=== PATIENT | male | born 1985 | race Caucasian/White ===

== ENCOUNTER 2018-03-04 03:31 | Emergency (ER) | payer OTHER ==
--- NOTE | 2018-03-04 03:42 | ED Physician Documentation ---
PD HPI NVD - Stated complaint Stated Complaint: DIARRHEA,FEVER - Chief complaint Chief Complaint: Abd Pain - History obtained from History obtained from: Patient - History of Present Illness Timing - onset: How many days ago (3) Timing - duration: Days (3) Timing - details: Gradual onset Pain level now: 3 Associated symptoms: Fever (subjective (felt like he had fever yesterday, but did not take temperature)), Abdominal pain (epigastric and LUQ). No: Chest pain Improved by: Other (no ameliorating factors) Worsened by: Other (no exacerbating factors) Similar symptoms before: Has not had sx before Recently seen: Not recently seen - Additonal information Additional information: c/o 3 days of diarrhea. mild nausea, no vomiting. cramping LUQ and epigastric abdominal pain Review of Systems Constitutional: reports: Fever (subjective), Chills, Sweats Cardiac: reports: Reviewed and negative Respiratory: reports: Reviewed and negative GI: reports: Abdominal Pain, Nausea (mild), Diarrhea. denies: Vomiting : denies: Dysuria, Frequency PD PAST MEDICAL HISTORY - Past Medical History Past Medical History: Yes Musculoskeletal: Chronic back pain - Past Surgical History Past Surgical History: Yes Ortho: Shoulder arthroplasty - Present Medications Home Medications: Ambulatory Orders Medication Instructions Recorded Confirmed Diphenoxylate/Atropine [Lomotil] 1 each PO QID PRN #20 tablet 03/04/18 - Allergies Allergies/Adverse Reactions: Allergies Allergy/AdvReac Type Severity Reaction Status Date / Time No Known Drug Allergies Allergy Verified 03/04/18 03:40 - Social History Does the pt smoke?: No Smoking Status: Never smoker Does the pt drink ETOH?: Yes Does the pt have substance abuse?: No - Immunizations Immunizations are current?: Yes - POLST Patient has POLST: No PD ED PE NORMAL - Vitals Vital signs reviewed: Yes - General General: Alert and oriented X 3, No acute distress, Well developed/nourished - HEENT HEENT: Other (tacky/pasty mucous membranes) - Neck Neck: Supple, no meningeal sign - Cardiac Cardiac: RRR, No murmur - Respiratory Respiratory: No respiratory distress, Clear bilaterally - Abdomen Abdomen: Soft, Non distended, Other (LUQ and epigastric TTP without rebound or guarding) - Back Back: No CVA TTP Results - Vitals Vitals: Vital Signs - 24 hr 03/04/18 03/04/18 03:36 05:56 Temperature 36.5 C 36.4 C L Heart Rate 74 74 Respiratory 15 18 Rate Blood Pressure 134/71 H 126/73 O2 Saturation 99 99 Oxygen O2 Source Room air - Labs Labs: Microbiology 03/04/18 05:30 Campylobacter Antigen Assay - Final Stool Laboratory Tests 03/04/18 03/04/18 04:15 04:15 WBC 4.8 RBC 5.06 Hgb 14.6 Hct 43.2 MCV 85.4 MCH 28.8 MCHC 33.7 RDW 13.1 Plt Count 211 MPV 7.1 L Neut # (Auto) 3.6 Lymph # (Auto) 0.5 L Fergus # (Auto) 0.5 Eos # (Auto) 0.2 Baso # (Auto) 0.0 Absolute Nucleated RBC 0.01 Nucleated RBC % 0.1 Sodium 140 Potassium 3.6 Chloride 105 Carbon Dioxide 26 Anion Gap 9.0 BUN 12 Creatinine 1.0 Estimated GFR (MDRD) 88 L Glucose 99 Calcium 9.0 Total Bilirubin 0.6 AST 23 ALT 21 Alkaline Phosphatase 42 Total Protein 7.4 Albumin 4.1 Globulin 3.3 Albumin/Globulin Ratio 1.2 Lipase 30 - Rads (name of study) CT A/P Radiology: Prelim report reviewed, See rad report PD MEDICAL DECISION MAKING - ED course Complexity details: reviewed results, re-evaluated patient, considered differential, d/w patient - Sepsis Event Vital Signs: Vital Signs - 24 hr 03/04/18 03/04/18 03:36 05:56 Temperature 36.5 C 36.4 C L Heart Rate 74 74 Respiratory 15 18 Rate Blood Pressure 134/71 H 126/73 O2 Saturation 99 99 Oxygen O2 Source Room air Departure - Departure Disposition: 01 Home, Self Care Clinical Impression: Diarrhea Condition: Good Instructions: ED Diarrhea Viral Follow-Up: [facility] [Provider Group] [facility] [Provider Group] Prescriptions: Diphenoxylate/Atropine [Lomotil] 1 each PO QID PRN #20 tablet PRN Reason: Diarrhea Discharge Date/Time: 03/04/18 05:56
[2018-03-04] MEDS: DIPHENOX/ATROPINE 2.5/0.025 MG TABLET PO STA (04:18)
[2018-03-04] MEDS: SODIUM CHLORIDE 0.9% 1,000 ML IV STA (04:21)
[2018-03-04] MEDS ORDERED: IOPAMIDOL-300 100 ML VIAL ONE (04:28)
[2018-03-04 04:30] LABS: BASOPHILS % (AUTO) 0.3 %; EOSINOPHILS # (AUTO) 0.2 10^3/uL (0.0-0.7); EOSINOPHILS % (AUTO) 5.1 %; HGB - HEMOGLOBIN 14.6 g/dL (14.0-18.0); LYMPHOCYTES # (AUTO) 0.5 10^3/uL (1.5-3.5); LYMPHOCYTES % (AUTO) 10.8 %; MEAN CORPUSCULAR HEMOGLOBIN 28.8 pg (27.0-31.0); MEAN CORPUSCULAR HGB CONC 33.7 g/dL (32.0-36.0); MEAN CORPUSCULAR VOLUME 85.4 fL (80.0-94.0); MEAN PLATELET VOLUME 7.1 fL (7.4-11.4); MONOCYTES # (AUTO) 0.5 10^3/uL (0.0-1.0); MONOCYTES % (AUTO) 10.1 %; NEUTROPHILS # (AUTO) 3.6 10^3/uL (1.5-6.6); NEUTROPHILS % (AUTO) 73.7 %; PLT - PLATELET COUNT 211 10^3/uL (130-450); RED BLOOD COUNT 5.06 10^6/uL (4.70-6.10); RED CELL DISTRIBUTION WIDTH 13.1 % (12.0-15.0); WHITE BLOOD COUNT 4.8 x10^3/uL (4.8-10.8)
[2018-03-04 04:40] LABS: ALBUMIN 4.1 g/dL (3.2-5.5); ALBUMIN/GLOBULIN RATIO 1.2 (1.0-2.2); BILIRUBIN,TOTAL 0.6 mg/dL (0.2-1.0); TOTAL PROTEIN 7.4 g/dL (6.7-8.2)
[2018-03-04] MEDS: IOPAMIDOL-300 100 ML VIAL IVP ONE (04:41)
--- NOTE | 2018-03-04 05:09 | CT Report ---
Procedure Date: 03/04/2018 Accession Number: [id number] / [id number] Procedure: CT - Abdomen/Pelvis W/ CPT Code: FULL RESULT: EXAM: CT ABDOMEN AND PELVIS EXAM DATE: 03/04/2018 04:43 AM. CLINICAL HISTORY: Abdominal pain. COMPARISONS: None. TECHNIQUE: Routine helical CT imaging was performed through the abdomen and pelvis. IV contrast: ISOVUE 300 100mL. Enteric contrast: No. Reconstructions: Coronal and sagittal. In accordance with CT protocol optimization, one or more of the following dose reduction techniques were utilized for this exam: automated exposure control, adjustment of mA and/or KV based on patient size, or use of iterative reconstructive technique. FINDINGS: Lung Bases: Unremarkable. Liver: No focal abnormality seen. Gallbladder/Bile Ducts: Unremarkable. Spleen: Normal. Pancreas: Normal. Adrenal Glands: Normal. Kidneys: Normal. No masses or hydronephrosis. Peritoneal Cavity/Bowel: No bowel obstruction seen. No diverticulitis. Colon is mostly collapsed and appears mildly thickened. Numerous nonspecific normal sized mesenteric lymph nodes. No free air or free fluid. Appendix appears normal. Pelvic Organs: Normal. The bladder and visualized pelvic organs are within normal limits. Vasculature: No aneurysms or other significant abnormality. Bones: Bilateral L5 pars defects with mild grade 1 spondylolisthesis at L5-S1. Other: None. IMPRESSION: 1. Colon is mostly collapsed and appears mildly thickened. This may simply represent nondistention. Low-grade colitis also possible. 2. Appendix appears normal. 3. Numerous normal sized mesenteric lymph nodes. These are nonspecific. RADIA
[2018-03-04 05:57] VITALS: BP 126/73
== END 2018-03-04 05:56 | disposition home or self-care (01) ==
LOC: ED 03:31
DX: R19.7 Diarrhea, unspecified (principal); R10.13 Epigastric pain
CPT/HCPCS: 36415; 74177; 80053; 83690; 85025; 87045; 87046; 87493; 96360; 99283; A9270; Q9967

== ENCOUNTER 2018-04-13 22:34 | Emergency (ER) | payer OTHER ==
[2018-04-13] MEDS ORDERED: EPINEPHrine 1 MG/ML AMP IM STA (22:40)
[2018-04-13] MEDS ORDERED: predniSONE 20 MG TABLET PO STA (22:40)
--- NOTE | 2018-04-13 22:44 | ED Physician Documentation ---
PD HPI SKIN - Stated complaint Stated Complaint: BEE STING - Chief complaint Chief Complaint: Allergic Rx - History obtained from History obtained from: Patient - History of Present Illness Timing - onset: Today (He was stung on the right wrist by a bee about 6 hours ago and has impressive swelling and itching of the arm but no other symptoms, specifically no throat swelling or shortness of breath.) Review of Systems Nose: denies: Rhinorrhea / runny nose, Congestion Respiratory: denies: Dyspnea, Cough GI: denies: Vomiting, Diarrhea PD PAST MEDICAL HISTORY - Past Medical History Musculoskeletal: Chronic back pain - Past Surgical History Past Surgical History: Yes Ortho: Shoulder arthroplasty - Present Medications Home Medications: Ambulatory Orders Medication Instructions Recorded Confirmed Diphenoxylate/Atropine [Lomotil] 1 each PO QID PRN #20 tablet 03/04/18 Cetirizine [ZyrTEC] 10 mg PO DAILY #7 tablet 04/13/18 predniSONE [Deltasone] 60 mg PO DAILY 5 Days tablet 04/13/18 - Allergies Allergies/Adverse Reactions: Allergies Allergy/AdvReac Type Severity Reaction Status Date / Time No Known Drug Allergies Allergy Verified 03/04/18 03:40 - Social History Does the pt smoke?: No Smoking Status: Never smoker Does the pt drink ETOH?: Yes Does the pt have substance abuse?: No - Immunizations Immunizations are current?: Yes - POLST Patient has POLST: No PD ED PE NORMAL - Vitals Vital signs reviewed: Yes - General General: Alert and oriented X 3, No acute distress, Well developed/nourished - Extremities Extremities: Other (He has edema from the wrist to the elbow of the right forearm with warmth and swelling and redness good range of motion.) - Neuro Neuro: Alert and oriented X 3, Normal speech Results - Vitals Vitals: Vital Signs - 24 hr 04/13/18 22:36 Temperature 36.4 C L Heart Rate 70 Respiratory 18 Rate Blood Pressure 139/88 H O2 Saturation 100 Oxygen O2 Source Room air PD MEDICAL DECISION MAKING - Sepsis Event Vital Signs: Vital Signs - 24 hr 04/13/18 22:36 Temperature 36.4 C L Heart Rate 70 Respiratory 18 Rate Blood Pressure 139/88 H O2 Saturation 100 Oxygen O2 Source Room air Departure - Departure Disposition: 01 Home, Self Care Clinical Impression: Local reaction to bee sting Qualifiers: Encounter type: initial encounter Injury intent: undetermined intent Qualified Code(s): T63.444A - Toxic effect of venom of bees, undetermined, initial encounter Condition: Good Record reviewed to determine appropriate education?: Yes Instructions: ED Bite Sting Insect Local Allergic React Prescriptions: Cetirizine [ZyrTEC] 10 mg PO DAILY #7 tablet predniSONE [Deltasone] 60 mg PO DAILY 5 Days tablet Comments: Keep it elevated, he can apply cold compresses to help with the itching and you can continue to use Benadryl with the other prescription medications. Your blood pressure was elevated today on check into the emergency department. This does not mean that you have hypertension, it is a common phenomenon to come to the emergency department and have elevated blood pressure. I recommend that you see your primary care physician within the week to have it rechecked when you are feeling better.
[2018-04-13] MEDS ORDERED: CETIRIZINE 10 MG TABLET PO STA (22:46)
[2018-04-13 23:05] VITALS: BP 130/80
== END 2018-04-13 23:02 | disposition home or self-care (01) ==
LOC: ED 22:34
DX: T63.444A Toxic effect of venom of bees, undetermined, initial encounter (principal); R03.0 Elevated blood-pressure reading, without diagnosis of hypertension
CPT/HCPCS: 96372; 99283; J7512

== ENCOUNTER 2019-06-05 06:49 | Emergency (ER) | payer OTHER ==
[2019-06-05] MEDS ORDERED: CHERRY SYRUP 10 ML UDC PO ONE (07:31)
[2019-06-05] MEDS ORDERED: KETOROLAC 60 MG/2 ML VIAL IM STA (07:31)
[2019-06-05] MEDS ORDERED: DEXAMETHASONE 10 MG/ML VIAL PO STA (07:31)
[2019-06-05] MEDS ORDERED: diazePAM INJ 5 MG/ML SYRINGE IM STA (07:32)
--- NOTE | 2019-06-05 08:43 | ED Physician Documentation ---
PD HPI BACK PAIN - Stated complaint Stated Complaint: BACK PX - Chief complaint Chief Complaint: Back Pain - History obtained from History obtained from: Patient, Family () - History of Present Illness Timing - onset: Yesterday Timing - details: Still present Location: Lower, Right Quality: Pain Worsened by: Movement Similar symptoms before: Diagnosis (Spondylolisthesis and lumbar disc rupture.) - Treatment prior to arrival Treatment prior to arrival: Ibuprofen without relief. - Additional information Additional information: The patient is a pleasant 34-year-old male who presents with lower back pain more on the right than the left. His pain started yesterday after moving she. He denies fever, urinary incontinence, numbness or weakness. He has a history of similar symptoms multiple times in the past. He has been diagnosed with spondylolisthesis and lumbar disc rupture. He has been seen at [facility] orthopedics where he underwent epidural injection, which he states did not work. Review of Systems Constitutional: denies: Fever Nose: denies: Congestion Cardiac: denies: Chest pain / pressure Respiratory: denies: Dyspnea, Cough GI: denies: Abdominal Pain, Nausea, Vomiting : denies: Dysuria, Incontinent Skin: denies: Rash Musculoskeletal: reports: Back pain. denies: Extremity pain Neurologic: denies: Focal weakness, Numbness PD PAST MEDICAL HISTORY - Past Medical History Past Medical History: Yes Cardiovascular: None Respiratory: None Neuro: None Endocrine/Autoimmune: None GI: None : None HEENT: None Psych: None Musculoskeletal: Chronic back pain Derm: None - Past Surgical History Past Surgical History: Yes Ortho: Shoulder arthroplasty - Present Medications Home Medications: Ambulatory Orders Medication Instructions Recorded Confirmed Cyclobenzaprine [Flexeril] 10 mg PO TID PRN #20 tablet 06/05/19 Hydrocodone/Acetaminophen 1 - 2 each PO Q6H PRN #14 tablet 06/05/19 [Hydrocodon-Acetaminophen 5-325] - Allergies Allergies/Adverse Reactions: Allergies Allergy/AdvReac Type Severity Reaction Status Date / Time No Known Drug Allergies Allergy Verified 06/05/19 06:59 - Social History Does the pt smoke?: No Smoking Status: Never smoker Does the pt drink ETOH?: Yes Does the pt have substance abuse?: No - Immunizations Immunizations are current?: Yes - POLST Patient has POLST: No PD ED PE NORMAL - Vitals Vital signs reviewed: Yes (normal) - General General: Alert and oriented X 3, Well developed/nourished, Other (Lying prone on the gurney.) - HEENT HEENT: Atraumatic - Neck Neck: No bony TTP - Cardiac Cardiac: RRR, No murmur - Respiratory Respiratory: No respiratory distress, Clear bilaterally - Abdomen Abdomen: Soft, Non tender - Back Back: No CVA TTP, No spinal TTP, Other (There is tenderness to palpation in the lower paralumbar region bilaterally, more on the right than the left.) - Derm Derm: No rash - Extremities Extremities: No edema, No calf tenderness / cord, Other (Straight leg raise test is negative bilaterally.) - Neuro Neuro: Alert and oriented X 3, No motor deficit, No sensory deficit, Other (Deep tendon reflexes are 2+ and equal bilaterally at the patellar and Achilles tendons.) Results - Vitals Vitals: Oxygen O2 Source Room air PD MEDICAL DECISION MAKING - ED course Complexity details: reviewed old records, re-evaluated patient, considered differential, d/w patient, d/w family ED course: The patient's presentation is significant for acute exacerbation of recurrent lower back pain. His presentation does not suggest epidural abscess, cauda equina syndrome, or spinal stenosis. Treatment in the emergency department included administration of ketorolac 60 mg IM, Valium 5 mg IM, and dexamethasone 10 mg orally. His symptoms improved slightly with the above treatment. He demonstrates less discomfort with movement. He is being discharged with prescriptions for Flexeril and for Vicodin, 14 tablets. I discussed with him and his symptomatic treatment, outpatient follow-up, as well as potentially worrisome signs or symptoms that should prompt reevaluation in the emergency department. Departure - Departure Disposition: 01 Home, Self Care Clinical Impression: Back pain Qualifiers: Back pain location: low back pain Chronicity: acute Back pain laterality: left Sciatica presence: without sciatica Qualified Code(s): M54.5 - Low back pain Condition: Stable Instructions: ED Low Back Pain Injury Follow-Up: Leeann Knott MD [Provider Admit Priv/Credential] - Prescriptions: Cyclobenzaprine [Flexeril] 10 mg PO TID PRN #20 tablet PRN Reason: Spasms Hydrocodone/Acetaminophen [Hydrocodon-Acetaminophen 5-325] 1 - 2 each PO Q6H PRN #14 tablet PRN Reason: pain Comments: Apply ice pack to your lower back intermittently for the next 3 or 4 days. You can use ibuprofen, up to 800 mg 3 times daily for its anti-inflammatory effect. You can use as Vicodin prescribed if needed for pain. You can use Flexeril as prescribed if needed for muscle spasms. Let pain be your guide to activity level. Follow up with your primary physician within 1-2 weeks. Call to schedule an appointment. Return to the emergency department if you develop increasing pain, numbness or weakness, urinary incontinence, or otherwise worsening symptoms. Discharge Date/Time: 06/05/19 08:50
[2019-06-05 08:50] VITALS: BP 130/92
== END 2019-06-05 08:50 | disposition home or self-care (01) ==
LOC: ED 06:49
DX: M54.5 Low back pain (principal)
CPT/HCPCS: 96372; 99283; 99284; A9270

== ENCOUNTER 2020-03-27 08:36 | Emergency (ER) | payer MEDICAID, OTHER ==
[2020-03-27] MEDS ORDERED: KETOROLAC 60 MG/2 ML VIAL IM STA (09:00)
[2020-03-27] MEDS ORDERED: HYDROmorphone 1 MG/ML CARPUJECT IM STA (09:00)
[2020-03-27] MEDS ORDERED: CYCLOBENZAPRINE 10 MG TABLET PO STA (09:01)
--- NOTE | 2020-03-27 09:08 | ED Physician Documentation ---
History of Present Illness - Stated complaint Stated Complaint: BACK PX - Chief complaint Chief Complaint: Back Pain - History obtained from History obtained from: Patient - Additonal information Additional information: Patient comes emergency department complaining of low back pain after stepping over an electrical line yesterday. 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 He has been followed by [facility] orthopedics and states his last MRI was about 3 years ago. He states they had tried injections, which did not really seem to help, and that he was told by his orthopedist that surgery was likely the next option. However, given the patient's young age and otherwise physical health, the orthopedist recommended that the patient wait to have surgery until later in life. Patient states that he has not lost any control of his bowel or bladder since yesterday. He denies any numbness or tingling in his lower extremities. He states that he is having pain shooting down both legs, but overall, symptoms are worse on the right. Patient is right side dominant. Patient does note that he has some sense of weakness, though he has been able to stand without difficulty. He states that as long as he remains erect, he can walk okay, but has to take small steps because it hurts to engage his low back musculature. No other complaints at this time. Review of Systems Ten Systems: 10 systems reviewed and negative Constitutional: reports: Reviewed and negative Eyes: reports: Reviewed and negative Ears: reports: Reviewed and negative Nose: reports: Reviewed and negative Throat: reports: Reviewed and negative Cardiac: reports: Reviewed and negative Respiratory: reports: Reviewed and negative GI: reports: Reviewed and negative : reports: Reviewed and negative Skin: reports: Reviewed and negative Musculoskeletal: reports: Back pain Neurologic: reports: Reviewed and negative Psychiatric: reports: Reviewed and negative Endocrine: reports: Reviewed and negative Immunocompromised: reports: Reviewed and negative PD PAST MEDICAL HISTORY - Past Medical History Past Medical History: Yes Cardiovascular: None Respiratory: Asthma Neuro: None Endocrine/Autoimmune: None GI: None : None HEENT: None Psych: None Musculoskeletal: Chronic back pain Derm: None - Past Surgical History Past Surgical History: Yes Ortho: Shoulder arthroplasty - Present Medications Home Medications: Ambulatory Orders Medication Instructions Recorded Confirmed Cyclobenzaprine [Flexeril] 10 mg PO TID PRN #20 tablet 06/05/19 03/27/20 Cyclobenzaprine [Flexeril] 10 mg PO TID PRN #20 tablet 03/27/20 Hydrocodone/Acetaminophen 1 - 2 each PO Q6H PRN #14 tablet 03/27/20 [Hydrocodon-Acetaminophen 5-325] Ibuprofen 400 mg PO Q6HR PRN 03/27/20 03/27/20 - Allergies Allergies/Adverse Reactions: Allergies Allergy/AdvReac Type Severity Reaction Status Date / Time No Known Drug Allergies Allergy Verified 03/27/20 08:47 - Social History Does the pt smoke?: No Smoking Status: Former smoker Does the pt drink ETOH?: Yes Does the pt have substance abuse?: No - Immunizations Immunizations are current?: Yes - POLST Patient has POLST: No PD ED PE NORMAL - Vitals Vital signs reviewed: Yes - General General: Alert and oriented X 3, No acute distress - HEENT HEENT: Atraumatic, PERRL, EOMI, Moist mucous membranes - Neck Neck: Supple, no meningeal sign - Cardiac Cardiac: RRR, No murmur, Strong equal pulses - Respiratory Respiratory: No respiratory distress, Clear bilaterally - Abdomen Abdomen: Soft, Non tender, Non distended - Back Back: No CVA TTP, No spinal TTP, Other (Tenderness of the right paraspinal musculature, With muscle spasm. Can stand and walk with a narrow based gait, though gait is slow. Tenderness noted over both SI joints.) - Derm Derm: Warm and dry - Extremities Extremities: No deformity - Neuro Neuro: Alert and oriented X 3, motor and generator brush cutter 2-12 intact, No motor deficit, No sensory deficit, Normal speech - Psych Psych: Normal mood, Normal affect Results - Vitals Vitals: Vital Signs - 24 hr 03/27/20 08:48 Temperature 36.5 C Heart Rate 60 Respiratory 16 Rate Blood Pressure 136/80 H O2 Saturation 100 Oxygen O2 Source Room air PD MEDICAL DECISION MAKING - ED course Complexity details: considered differential, d/w patient ED course: The patient had a history of such symptoms and did not display any evidence of neurologic compromise. I suspected his sense of weakness was secondary to the pain itself, as the patient did have a very steady stance and gait. He was treated symptomatically in the emergency department with Toradol, Dilaudid, and Flexeril. I have given him prescriptions for Vicodin and Flexeril for at home. He is advised to follow-up with his orthopedist for further concerns. If the patient develops loss of bowel or bladder function or a staggering gait, he should return to the emergency department immediately. Departure - Departure Disposition: 01 Home, Self Care Clinical Impression: Acute myofascial strain of lumbosacral region Qualifiers: Encounter type: initial encounter Qualified Code(s): S39.012A - Strain of muscle, fascia and tendon of lower back, initial encounter Sciatica Qualifiers: Laterality: bilateral Qualified Code(s): M54.31 - Sciatica, right side; M54.32 - Sciatica, left side Condition: Stable Instructions: ED Low Back Pain Injury, ED Sciatica Prescriptions: Cyclobenzaprine [Flexeril] 10 mg PO TID PRN #20 tablet PRN Reason: Spasms Hydrocodone/Acetaminophen [Hydrocodon-Acetaminophen 5-325] 1 - 2 each PO Q6H PRN #14 tablet PRN Reason: pain Comments: Please take the medications prescribed, as needed for pain and muscle spasm. Please follow-up with your orthopedist for further concerns. If you develop loss of bowel or bladder function, or if you develop a staggering gait, please return to the emergency department immediately. Please do not drive for the next 8 hours, as you have been treated with a sedating medication in the e mergency department today. Discharge Date/Time: 03/27/20 09:10
[2020-03-27 09:33] VITALS: BP 136/89
== END 2020-03-27 09:32 | disposition home or self-care (01) ==
LOC: ED 08:36
DX: S39.012A Strain of muscle, fascia and tendon of lower back, initial encounter (principal); X50.9XXA Other and unspecified overexertion or strenuous movements or postures, initial encounter; Y93.89 Activity, other specified; Y92.79 Other farm location as the place of occurrence of the external cause; Y99.0 Civilian activity done for income or pay; M54.31 Sciatica, right side; M54.32 Sciatica, left side; Z87.891 Personal history of nicotine dependence
CPT/HCPCS: 96372; 99283; 99284; A9270; J1170

== ENCOUNTER 2020-05-04 18:28 | Emergency (ER) | payer MEDICAID ==
[2020-05-04 22:19] LABS: BASOPHILS % (AUTO) 0.9 %; EOSINOPHILS # (AUTO) 0.5 10^3/uL (0.0-0.7); EOSINOPHILS % (AUTO) 10.8 %; HGB - HEMOGLOBIN 13.7 g/dL (14.0-18.0); LYMPHOCYTES # (AUTO) 1.6 10^3/uL (1.5-3.5); LYMPHOCYTES % (AUTO) 36.1 %; MEAN CORPUSCULAR HGB CONC 33.2 g/dL (32.0-36.0); MEAN CORPUSCULAR VOLUME 84.3 fL (80.0-94.0); MEAN PLATELET VOLUME 8.7 fL (7.4-11.4); MONOCYTES # (AUTO) 0.7 10^3/uL (0.0-1.0); NEUTROPHILS # (AUTO) 1.6 10^3/uL (1.5-6.6); NEUTROPHILS % (AUTO) 36.1 %; PLT - PLATELET COUNT 176 10^3/uL (130-450); RED CELL DISTRIBUTION WIDTH 12.7 % (12.0-15.0); WHITE BLOOD COUNT 4.5 x10^3/uL (4.8-10.8)
[2020-05-04] MEDS ORDERED: KETOROLAC 60 MG/2 ML VIAL IM STA (22:25)
[2020-05-04 22:32] LABS: ALBUMIN 4.4 g/dL (3.2-5.5); ALBUMIN/GLOBULIN RATIO 1.6 (1.0-2.2); BILIRUBIN,TOTAL 0.7 mg/dL (0.2-1.0); CALCIUM 8.9 mg/dL (8.5-10.3); CREATININE 0.9 mg/dL (0.6-1.2); TOTAL PROTEIN 7.1 g/dL (6.7-8.2)
--- NOTE | 2020-05-04 22:34 | ED Physician Documentation ---
History of Present Illness - Stated complaint Stated Complaint: SHOULDER/NECK PAIN - Chief complaint Chief Complaint: Ext Problem - Additonal information Additional information: 34-year-old male presents to the emergency department for right-sided shoulder and neck pain that radiates to his chest. He has had this persistently for the last 4 days. He denies that the pain is worse with exertion or movements, it is simply just always there. He denies any dyspnea or pleuritic chest pain. He does not smoke but consumes alcohol moderately. He has no family history of sudden onset coronary artery disease. 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 He denies that he has had any falls or trauma or any activities different than his baseline. He denies any cough, recent travel, leg swelling, congestion or hemoptysis. He denies any abdominal pain vomiting diarrhea or dysuria Review of Systems Constitutional: denies: Fever, Chills Nose: denies: Rhinorrhea / runny nose, Congestion Throat: denies: Oral lesions / sores, Sore throat Cardiac: reports: Chest pain / pressure. denies: Palpitations, Pedal edema, Calf pain Respiratory: denies: Dyspnea, Cough, Hemoptysis, Wheezing GI: denies: Abdominal Pain, Nausea, Vomiting, Diarrhea : denies: Dysuria, Frequency, LMP Skin: denies: Rash, Lesions Musculoskeletal: reports: Neck pain, Back pain PD PAST MEDICAL HISTORY - Past Medical History Cardiovascular: None Respiratory: Asthma Neuro: None Endocrine/Autoimmune: None GI: None : None HEENT: None Psych: None Musculoskeletal: Chronic back pain Derm: None - Past Surgical History Past Surgical History: Yes Ortho: Shoulder arthroplasty - Present Medications Home Medications: Ambulatory Orders Medication Instructions Recorded Confirmed Cyclobenzaprine [Flexeril] 10 mg PO TID PRN #20 tablet 06/05/19 03/27/20 Cyclobenzaprine [Flexeril] 10 mg PO TID PRN #20 tablet 03/27/20 Hydrocodone/Acetaminophen 1 - 2 each PO Q6H PRN #14 tablet 03/27/20 [Hydrocodon-Acetaminophen 5-325] Ibuprofen 400 mg PO Q6HR PRN 03/27/20 03/27/20 Cyclobenzaprine [Flexeril] 10 mg PO TID PRN #20 tablet 05/04/20 Hydrocodone/Acetaminophen [Oaks 1 each PO BID PRN #10 tablet 05/04/20 5-325 Tablet] - Allergies Allergies/Adverse Reactions: Allergies Allergy/AdvReac Type Severity Reaction Status Date / Time No Known Drug Allergies Allergy Verified 05/04/20 19:02 - Social History Does the pt smoke?: No Smoking Status: Never smoker Does the pt drink ETOH?: Yes Does the pt have substance abuse?: No - Immunizations Immunizations are current?: Yes - POLST Patient has POLST: No PD ED PE NORMAL - General General: Alert and oriented X 3, No acute distress - HEENT HEENT: PERRL, EOMI - Neck Neck: No bony TTP, No adenopathy - Cardiac Cardiac: RRR, No murmur, No gallop - Respiratory Respiratory: No respiratory distress, Clear bilaterally - Abdomen Abdomen: Normal bowel sounds - Back Back: No CVA TTP, No spinal TTP - Derm Derm: Normal color, Warm and dry, No rash - Extremities Extremities: No deformity, No tenderness to palpate, Normal ROM s pain, Other (Shoulder back and chest pain is not reproducible with movement.) - Neuro Neuro: Alert and oriented X 3, 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, No motor deficit, No sensory deficit, Normal speech Results - Vitals Vitals: Vital Signs - 24 hr 05/04/20 18:57 Temperature 37.1 C Heart Rate 68 Respiratory 16 Rate Blood Pressure 136/73 H O2 Saturation 98 Oxygen O2 Source Room air - EKG (time done) 2005 Rate: Rate (enter#) (62) Rhythm: NSR [place]: Normal Intervals: Normal MS QRS: Normal Ischemia: Normal ST segments Compare to prior EKG: Unchanged from prior EKG Computer interpretation: Agree with computer - Labs Labs: Laboratory Tests 05/04/20 05/04/20 05/04/20 22:14 22:14 22:14 WBC 4.5 L RBC 4.90 Hgb 13.7 L Hct 41.3 L MCV 84.3 MCH 28.0 MCHC 33.2 RDW 12.7 Plt Count 176 MPV 8.7 Neut # (Auto) 1.6 Lymph # (Auto) 1.6 [place] # (Auto) 0.7 Eos # (Auto) 0.5 Baso # (Auto) 0.0 Absolute Nucleated RBC 0.00 Nucleated RBC % 0.0 Sodium 138 Potassium 3.6 Chloride 102 Carbon Dioxide 29 Anion Gap 7.0 BUN 19 Creatinine 0.9 Estimated GFR (MDRD) 98 Glucose 92 Calcium 8.9 Total Bilirubin 0.7 AST 31 ALT 40 Alkaline Phosphatase 47 Troponin I High Sens 6.0 Total Protein 7.1 Albumin 4.4 Globulin 2.7 Albumin/Globulin Ratio 1.6 Lipase 37 - Rads (name of study) cxr Radiology: EMP read indepedently (no acute cardiopulmonary process) PD MEDICAL DECISION MAKING - ED course Complexity details: reviewed results, re-evaluated patient, considered differential, d/w patient ED course: 34-year-old male presents to the emergency department for evaluation of right shoulder pain that radiates to his chest and neck. It began about 4 days ago and has been pretty persistent. It is not reproducible but neither is it worse with exertion or movement. His EKG is evaluated. It is sinus rhythm without any ischemic changes. His high-sensitivity troponin is negative. This gentleman is PERC and Wells negative. My suspicion for PE is exceedingly low. His chest x-ray does not show any focal infiltrates widened mediastinum. His cardiopulmonary exam is otherwise unremarkable. My suspicion that this is related to his heart or pulmonary pathology is exceedingly low. I do think that this may be musculoskeletal even though it cannot be reproduced at this time given the nature of his work and his age. I will recommend ibuprofen at home as well as a mild muscle relaxer and hydrocodone for as needed use. He is currently scheduled to follow-up with a primary care doctor early next week. Departure - Departure Disposition: 01 Home, Self Care Clinical Impression: Chest pain Qualifiers: Chest pain type: unspecified Qualified Code(s): R07.9 - Chest pain, unspecified Shoulder pain Qualifiers: Chronicity: acute Laterality: right Qualified Code(s): M25.511 - Pain in right shoulder Condition: Stable Instructions: ED Chest Pain NonCardiac Prescriptions: Cyclobenzaprine [Flexeril] 10 mg PO TID PRN #20 tablet PRN Reason: Spasms Hydrocodone/Acetaminophen [Oaks 5-325 Tablet] 1 each PO BID PRN #10 tablet PRN Reason: Pain Comments: Xavier your EKG labs and chest x-ray are all essentially normal today. Let us have you try taking the ibuprofen as discussed. For severe pain you may take the hydrocodone but please do not drive or operate machinery if taking this. I have also prescribed some Flexeril as a muscle relaxant. If at any point you develop shortness of breath, have leg swelling or difficulty breathing then please return immediately to the emergency department. Please do not miss follow-up with your primary care doctor
[2020-05-04] MEDS ORDERED: HYDROcod/ACETAM 5/325 MG TABLET PO STA (22:52)
[2020-05-04 23:12] VITALS: BP 130/74
--- NOTE | 2020-05-05 07:18 | XRAY Report ---
PROCEDURE: Chest 1 View X-Ray INDICATIONS: Chest Pain TECHNIQUE: One view of the chest was acquired. COMPARISON: None FINDINGS: Surgical changes and devices: None. Lungs and pleura: No pleural effusions or pneumothorax. Lungs are clear. Mediastinum: Mediastinal contours appear normal. Heart size is normal. Bones and chest wall: No suspicious bony lesions. Overlying soft tissues appear unremarkable. IMPRESSION: No acute cardiopulumonary disease process. Reviewed by: Yuli Lopez MD, PhD on 05/05/2020 7:17 AM PDT Approved by: Yuli Lopez MD, PhD on 05/05/2020 7:17 AM PDT Station ID: [id number]
== END 2020-05-04 23:12 | disposition home or self-care (01) ==
LOC: ED 18:28
DX: R07.9 Chest pain, unspecified (principal); M25.511 Pain in right shoulder; M54.2 Cervicalgia
CPT/HCPCS: 36415; 71045; 80053; 83690; 84484; 85025; 93005; 96372; 99284; A9270

== ENCOUNTER 2020-10-19 00:31 | Emergency (ER) | payer MEDICAID ==
--- NOTE | 2020-10-19 00:39 | ED Physician Documentation ---
PD HPI ABD PAIN - Stated complaint Stated Complaint: ADB PX, VOMIT - Chief complaint Chief Complaint: Abd Pain - History obtained from History obtained from: Patient - History of Present Illness Timing - onset: How many days ago (several) Timing - duration: Days (several days of intermittent pain without pattern to provocation/onset. Pain markedly worse this evening.) Timing - details: Gradual onset, Still present, Waxing and waning Quality: Aching, Sharp, Pain Location: RUQ, Epigastric Radiation: No: Chest, Lower back, Left flank, Right flank Improved by: No: Eating, Position Worsened by: No: Eating, Position Associated symptoms: Nausea, Vomiting (couple times this evening, no noted blood to it.). No: Fever, Diarrhea Similar symptoms before: Has not had sx before Recently seen: Not recently seen Review of Systems Constitutional: denies: Fever, Chills Nose: denies: Rhinorrhea / runny nose, Congestion Throat: denies: Sore throat Respiratory: denies: Cough GI: reports: Abdominal Pain, Nausea, Vomiting. denies: Constipation, Diarrhea, Hematemesis : denies: Dysuria, Frequency Neurologic: denies: Generalized weakness, Near syncope PD PAST MEDICAL HISTORY - Past Medical History Cardiovascular: None Respiratory: Asthma Neuro: None Endocrine/Autoimmune: None GI: None : None HEENT: None Psych: None Musculoskeletal: Chronic back pain Derm: None - Past Surgical History Past Surgical History: Yes Ortho: Shoulder arthroplasty - Present Medications Home Medications: Ambulatory Orders Medication Instructions Recorded Confirmed Famotidine [Pepcid] 20 mg PO DAILY #30 tab 10/19/20 Lidocaine Viscous 2% [Xylocaine 5 ml PO Q4H PRN #100 ml 10/19/20 Viscous 2%] Ondansetron Odt [Zofran] 4 mg TL Q6H PRN #10 tab 10/19/20 Oxycodone HCl/Acetaminophen 1 each PO Q6H PRN #18 tab 10/19/20 [Percocet 5-325 mg Tablet] - Allergies Allergies/Adverse Reactions: Allergies Allergy/AdvReac Type Severity Reaction Status Date / Time No Known Drug Allergies Allergy Verified 10/19/20 00:38 - Social History Does the pt smoke?: No Smoking Status: Never smoker Does the pt drink ETOH?: Yes Does the pt have substance abuse?: No - Immunizations Immunizations are current?: Yes - POLST Patient has POLST: No PD ED PE NORMAL - Vitals Vital signs reviewed: Yes - General General: Alert and oriented X 3, Well developed/nourished, Other (appears in pain upper abd. ) - HEENT HEENT: Pharynx benign - Neck Neck: Supple, no meningeal sign, No adenopathy - Cardiac Cardiac: RRR, No murmur - Respiratory Respiratory: Clear bilaterally - Abdomen Abdomen: Normal bowel sounds, Non distended, No organomegaly, Other (tender with some guarding epigastric and RUQ. No percussion tenderness. ) - Male Male : Deferred - Rectal Rectal: Deferred - Derm Derm: Normal color, Warm and dry - Extremities Extremities: No tenderness to palpate, Normal ROM s pain - Neuro Neuro: Alert and oriented X 3, No motor deficit, Normal speech Results - Vitals Vitals: Oxygen O2 Source Room air - Labs Labs: Laboratory Tests 10/19/20 10/19/20 10/19/20 00:45 00:45 00:45 WBC 8.7 RBC 5.19 Hgb 14.8 Hct 45.1 MCV 86.9 MCH 28.5 MCHC 32.8 RDW 13.1 Plt Count 258 MPV 9.0 Neut # (Auto) 5.1 Lymph # (Auto) 2.7 [place] # (Auto) 0.6 Eos # (Auto) 0.3 Baso # (Auto) 0.0 Absolute Nucleated RBC 0.00 Nucleated RBC % 0.0 Sodium 141 Potassium 3.6 Chloride 102 Carbon Dioxide 27 Anion Gap 12.0 BUN 24 H Creatinine 1.0 Estimated GFR (MDRD) 86 L Glucose 111 H Calcium 10.0 Total Bilirubin 0.6 AST 26 ALT 28 Alkaline Phosphatase 44 Total Protein 7.5 Albumin 4.8 Globulin 2.7 Albumin/Globulin Ratio 1.8 Lipase 38 Urine Color YELLOW Urine Clarity CLEAR Urine pH 5.5 Ur Specific [place] >=1.030 H Urine Protein NEGATIVE Urine Glucose (UA) NEGATIVE Urine Ketones NEGATIVE Urine Occult Blood NEGATIVE Urine Nitrite NEGATIVE Urine Bilirubin NEGATIVE Urine Urobilinogen 0.2 (NORMAL) Ur Leukocyte Esterase NEGATIVE Ur Microscopic Review NOT INDICATED Urine Culture Comments NOT INDICATED - Rads (name of study) RUQ abd U/S Radiology: Prelim report reviewed (no acute process), See rad report abd CT Radiology: Prelim report reviewed (no acute process), See rad report PD MEDICAL DECISION MAKING - ED course Complexity details: reviewed results (U/S appears normal. Pain is still high degree despite mylanta. OPted for CT, which did not show acute process. ), re- evaluated patient (still very painful with tendeness epigastric and RUQ. Discussed with pt and then opted for CT. ), considered differential (Epigastric to right upper quadrant pain abruptly the last several hours. Consider gastritis or ulcer, perforation, gallbladder process, pancreatitis, vascular or other concerns.), d/w patient ED course: He did feel better with pain meds IV. MYlanta without improvement but subsequent MYlanta with lido helped quite a bit. Departure - Departure Disposition: 01 Home, Self Care Clinical Impression: Acute upper abdominal pain Gastritis, acute Qualifiers: Gastritis type: unspecified gastritis Gastritis bleeding: without bleeding Qualified Code(s): K29.00 - Acute gastritis without bleeding Condition: Stable Record reviewed to determine appropriate education?: Yes Instructions: ED Abdominal Pain Unkn Cause, ED PUD Vs Gastritis Prescriptions: Famotidine [Pepcid] 20 mg PO DAILY #30 tab Oxycodone HCl/Acetaminophen [Percocet 5-325 mg Tablet] 1 each PO Q6H PRN #18 tab PRN Reason: pain Lidocaine Viscous 2% [Xylocaine Viscous 2%] 5 ml PO Q4H PRN #100 ml PRN Reason: Pain Ondansetron Odt [Zofran] 4 mg TL Q6H PRN #10 tab PRN Reason: Nausea / Vomiting Comments: Your blood tests, ultrasound, and CT scan did not show any acute obvious cause for the pain. In particular things that will not show on this in the location of your pain would be stomach related such as gastritis or ulcer. We will treat for those probabilities at this point with acid reducing medicines, nausea medicine and pain pills. Avoid any caffeine or alcohol. Add antacids periodically if needed for discomfort. Regular diet and bland food in particular. Use famotidine acid reducing medicine twice daily for the first 5 or 6 days and then once daily for several weeks. Ondansetron if needed for nausea. Add Tylenol every 4-6 hours if needed for pain or Percocet if needed for worse pain. Antacids with or without the lidocaine can be used as well. Avoid NSAIDs as they could further irritate your stomach. Follow-up with your primary care. Call later today for an appointment for perhaps early next week for follow-up. Discharge Date/Time: 10/19/20 04:36
[2020-10-19] MEDS ORDERED: KETOROLAC 30 MG/ML VIAL IVP STA (00:56)
[2020-10-19] MEDS ORDERED: ONDANSETRON 4 MG/2 ML VIAL IVP STA (00:56)
[2020-10-19] MEDS ORDERED: HYDROmorphone 1 MG/ML CARPUJECT IVP STA ×2 (00:56→02:37)
[2020-10-19] MEDS ORDERED: MAG HYDROX/AL HYDROX/SIMETH 30 ML UDC PO STA ×2 (00:56→02:37)
[2020-10-19] MEDS ORDERED: SODIUM CHLORIDE 0.9% 1,000 ML IV STA (00:56)
[2020-10-19 00:57] LABS: BILIRUBIN,URINE NEGATIVE (NEGATIVE); GLUCOSE, URINE (UA) NEGATIVE (NEGATIVE); KETONES,URINE (UA) NEGATIVE (NEGATIVE); LEUKOCYTE ESTERASE, URINE NEGATIVE (NEGATIVE); NITRITE,URINE NEGATIVE (NEGATIVE); OCCULT BLOOD,URINE NEGATIVE (NEGATIVE); PH,URINE 5.5 PH (5.0-7.5); PROTEIN,URINE NEGATIVE (NEGATIVE); UROBILINOGEN,URINE 0.2 (NORMAL) E.U./dL (NORMAL)
[2020-10-19 00:58] LABS: BASOPHILS % (AUTO) 0.5 %; CLARITY,URINE CLEAR (CLEAR); EOSINOPHILS # (AUTO) 0.3 10^3/uL (0.0-0.7); EOSINOPHILS % (AUTO) 3.2 %; HGB - HEMOGLOBIN 14.8 g/dL (14.0-18.0); LYMPHOCYTES # (AUTO) 2.7 10^3/uL (1.5-3.5); LYMPHOCYTES % (AUTO) 31.1 %; MEAN CORPUSCULAR HEMOGLOBIN 28.5 pg (27.0-31.0); MEAN CORPUSCULAR HGB CONC 32.8 g/dL (32.0-36.0); MEAN CORPUSCULAR VOLUME 86.9 fL (80.0-94.0); MONOCYTES # (AUTO) 0.6 10^3/uL (0.0-1.0); MONOCYTES % (AUTO) 6.5 %; NEUTROPHILS # (AUTO) 5.1 10^3/uL (1.5-6.6); NEUTROPHILS % (AUTO) 58.2 %; PLT - PLATELET COUNT 258 10^3/uL (130-450); RED BLOOD COUNT 5.19 10^6/uL (4.70-6.10); RED CELL DISTRIBUTION WIDTH 13.1 % (12.0-15.0); WHITE BLOOD COUNT 8.7 x10^3/uL (4.8-10.8)
[2020-10-19 01:13] LABS: ALBUMIN 4.8 g/dL (3.2-5.5); ALBUMIN/GLOBULIN RATIO 1.8 (1.0-2.2); BILIRUBIN,TOTAL 0.6 mg/dL (0.2-1.0); TOTAL PROTEIN 7.5 g/dL (6.7-8.2)
[2020-10-19] MEDS ORDERED: LIDOCAINE VISCOUS 2% 15 ML UDC MM STA (02:37)
[2020-10-19] MEDS ORDERED: IOVERSOL 320 100 ML VIAL IVP ONE ×2 (02:56→03:45)
[2020-10-19] MEDS ORDERED: oxyCODONE/ACET 5/325 Prepack 4 PO STA (03:59)
[2020-10-19 04:36] VITALS: BP 156/86
--- NOTE | 2020-10-19 08:41 | Ultrasound Report ---
PROCEDURE: Abdomen Limited INDICATIONS: RUQ/epigastric pain for 4 hours TECHNIQUE: Real-time focused scanning was performed of the right upper quadrant, with image documentation. COMPARISON: CT abdomen pelvis 03/04/2018, 10/19/2020. FINDINGS: Within the left hepatic lobe, there is a small hyperechoic oval lesion with indistinct margins measur ing 0.9 x 0.6 x 0.6 cm. No internal vascularity on color Doppler interrogation. The liver demonstrate s increased echogenicity compatible with fatty infiltration. Gallbladder demonstrates no gallstones, wall thickening, or pericholecystic fluid. No reported sonogr aphic Loco sign. No intra or extrahepatic biliary ductal dilatation. The common bile duct measures up to 0.3 cm. The visualized pancreas appears unremarkable sonographically. Right kidney measures 11.2 cm. No hydronephrosis. IMPRESSION: 1. No evidence of cholelithiasis or cholecystitis. 2. Small hyperechoic lesion within the left kidney is nonspecific but likely represents a hemangioma. Reviewed by: Srini Goetz MD on 10/19/2020 8:39 AM PST Approved by: Srini Goetz MD on 10/19/2020 8:39 AM PST Station ID: [id number]
--- NOTE | 2020-10-19 08:54 | CT Report ---
PROCEDURE: Abdomen/Pelvis W INDICATIONS: upper abd pain CONTRAST: IV CONTRAST: Optiray 320 ml: 100 PO CONTRAST: *NO PO CONTRAST TECHNIQUE: After the administration of intravenous contrast, 5 mm thick sections acquired from the diaphragms to the symphysis. 5 mm thick coronal and sagittal reformats were acquired. For radiation dose reducti on, the following was used: automated exposure control, adjustment of mA and/or kV according to ivana ent size. COMPARISON: Ultrasound abdomen, 10/19/2020. CT abdomen and pelvis with contrast, 03/04/2018. FINDINGS: Image quality: Excellent. ABDOMEN: Lung bases: Lung bases are clear. Heart size is normal. Small hiatal hernia. Solid organs: There is a 7 mm hyperenhancing nodule in the posterior left hepatic lobe. This correla andreas with a hyperechoic nodule seen on the comparison ultrasound. It is most likely a hepatic hemangio ma. Liver and spleen are normal in size and enhancement. Gallbladder is normal. Biliary system is n on dilated. Pancreas enhances normally. No adrenal nodules. Kidneys demonstrate normal size and en hancement, without hydronephrosis. Peritoneum and bowel: Appendix is normal. Bowel loops demonstrate normal wall thickness and caliber. No free fluid or air. Nodes and vessels: No retroperitoneal or mesenteric adenopathy by size criteria. Aorta and inferior vena cava are normal in size. Miscellaneous: No ventral hernias. PELVIS: Genitourinary: Bladder wall thickness is normal. Miscellaneous: No inguinal hernias or adenopathy. Bones: No suspicious bony lesions. No vertebral body compression fractures. Bilateral pars interar ticularis defects at L5. There is trace anterolisthesis of L5 on S1. IMPRESSION: 1. A cause for upper abdominal pain is not identified. 2. A 7 mm enhancing nodule in the posterior left hepatic lobe, correlating with ultrasound finding of a hypoechoic nodule, compatible with a hepatic hemangioma. 3. Bilateral pars interarticularis defects at L5. There is trace anterolisthesis of L5 on S1. No significant discrepancy with the preliminary interpretation. Reviewed by: Jason Elizabeth MD on 10/19/2020 8:53 AM PST Approved by: Jason Eliazbeth MD on 10/19/2020 8:53 AM PST Station ID: [id number]
== END 2020-10-19 04:36 | disposition home or self-care (01) ==
LOC: ED 00:31
DX: K29.00 Acute gastritis without bleeding (principal)
CPT/HCPCS: 36415; 74177; 76705; 80053; 81003; 83690; 85025; 96361; 96374; 96375; 96376; 99284; A9270; J1170; Q9967; 81001; 87086

== ENCOUNTER 2023-05-09 12:46 | Outpatient (CLI) | payer MEDICAID ==
--- NOTE | 2023-05-09 18:11 | XRAY Report ---
PROCEDURE: Wrist 4 View RT INDICATIONS: SPRAIN OF RIGHT WRIST TECHNIQUE: 3 views of the wrist were acquired. COMPARISON: None. FINDINGS: Bones: No fractures or dislocations. No suspicious bony lesions. Soft tissues: No suspicious soft tissue calcifications or masses. IMPRESSION: No acute bony abnormality. Reviewed by: Ashish Joyner MD on 05/09/2023 5:10 PM AKDT Approved by: Ashish Joyner MD on 05/09/2023 5:10 PM AKDT Station ID: [id number]
== END 2023-05-09 12:47 | disposition home or self-care (01) ==
LOC: DI 12:46
PROVIDERS: ATTEND Registered Nurse
DX: S63.591A Other specified sprain of right wrist, initial encounter (principal)

== ENCOUNTER 2024-04-20 14:10 | Emergency (ER) | payer MEDICAID ==
--- NOTE | 2024-04-20 15:02 | ED Physician Documentation ---
History of Present Illness - Stated complaint Stated Complaint: LT RING FING INJ - Chief complaint Chief Complaint: General - Additonal information Additional information: 38-year-old male with history of asthma presents emergency department for acute pain to left ring finger. Patient says that his finger got stuck in some steel piping and there is a significant pain to the tip of his finger as well as swelling and bruising to the fingernail. He is up-to-date with his tetanus shot. PD PAST MEDICAL HISTORY - Past Medical History Cardiovascular: None Respiratory: Asthma Neuro: None Endocrine/Autoimmune: None GI: None : None HEENT: None Psych: None Musculoskeletal: Chronic back pain Derm: None - Past Surgical History Past Surgical History: Yes Ortho: Shoulder arthroplasty - Present Medications Home Medications: Ambulatory Orders Medication Instructions Recorded Confirmed Cyclobenzaprine [Flexeril] 10 mg PO TID PRN #20 tablet 04/14/22 Diclofenac Sodium [Voltaren 2 gm TP QID PRN #100 gm 04/14/22 Arthritis Pain] Oxycodone HCl/Acetaminophen 1 each PO Q6H PRN #10 tablet 04/14/22 [Percocet 5-325 mg Tablet] dexAMETHasone [Decadron] 4 mg PO BID #10 tablet 04/14/22 HYDROcod/ACETAM 5/325 [Bussey 5/325] 1 tablet PO Q6H PRN #8 tablet 04/20/24 - Allergies Allergies/Adverse Reactions: Allergies Allergy/AdvReac Type Severity Reaction Status Date / Time morphine Allergy Unknown Verified 04/20/24 14:53 - Social History Does the pt smoke?: No Smoking Status: Never smoker Does the pt drink ETOH?: Yes Does the pt have substance abuse?: No - Immunizations Immunizations are current?: Yes - POLST Patient has POLST: No PD ED PE NORMAL - Vitals Vital signs reviewed: Yes - General General: Alert and oriented X 3, Well developed/nourished, Other (in acute pain) - Derm Derm: Other (Significant ecchymosis to the volar aspect of left fourth finger to the DIP as well as bruising to the fingernail blood collection is about 75% of the fingernail.) - Extremities Extremities: Other (left fourth finger swelling and brusing, tenderness with flexion, extension) Results - Vitals Vitals: Vital Signs - 24 hr 04/20/24 16:28 Temperature 36.5 C Heart Rate 50 L Respiratory 16 Rate Blood Pressure 130/88 H O2 Saturation 100 Oxygen O2 Source Room air - Rads (name of study) Left finger x-ray Relevant Findings:: Final report received, EMP independent interpretation of test, Other (Tiny avulsion fragments to the distal tip of left fourth finger) PD Medical Decision Making - ED course ED course: 38-year-old male presents emergency department for significant pain and swelling to the tip of the left fourth finger. There is a blood collection under the fingernail that is covering about 75% of the surface area. A digital block was complete with lidocaine and patient had complete relief of pain and tenderness to the left fourth digit. Because of the subungual hematoma covering about 75% of the fingernail to trephination holes were made to the volar aspect of the fingernail with cauterization and a large amount of blood was removed from the fingernail. Bacitracin was applied over the holes of the nail so that this could continue to ooze and drain as needed a splint was placed over the left fourth finger and a prescription of Bussey was sent to his preferred pharmacy for pain control. I am prescribing a short course of short-acting opioid pain medication for this patient. I have reviewed the patients GRIEVANCE AND APPEALS COORDINATOR and no concerning findings were noted. I have discussed that the opioids are for short term therapy only, and will not be refilled from the ED. Return precautions given to the patient he is told to follow-up with primary care provider as needed all questions answered patient taught how to manage injury at home. Safe for discharge. Departure - Departure Disposition: 01 Home, Self Care Clinical Impression: Subungual hematoma of finger, Fracture, finger Instructions: ED Fx Finger Open Prescriptions: HYDROcod/ACETAM 5/325 [Bussey 5/325] 1 tablet PO Q6H PRN #8 tablet PRN Reason: Pain Comments: Thank you for trusting us with your care. We have drained your fingernail and found that you have a fracture at the tip of your finger. We have placed bacitracin over the wound make sure you wash it 1-2 times a day to prevent from infection. Eventually her fingernail will fall off. You can wear the splint as long as needed want for pain and discomfort it will take about 4 to 6 weeks for this fracture to heal. I am prescribing a short course of narcotic pain medication for you. These are potentially dangerous and addictive medications that should be used carefully. These medications may constipate you. Take an [id number] stool softener (docusate) twice daily with plenty of water while taking these medications. If you go 24 hours without a bowel movement, take [id number] miralax, per package instructions. Do not drink or drive while taking these medications. If you received narcotic or sedating medications while in the emergency department, do not drive for 24 hours. Store this medication in a safe, secure place and out of reach of children. It is a violation of federal law to give or sell this medication to another person or to use in a manner other than prescribed. The ED will not refill narcotic prescriptions, including prescriptions lost or stolen. To dispose of unwanted medications: 1. [facility] at [address] in [place] has a medication drop box. They accept prescription medications (in pill form) Saturday through Saturday 9:00 a.m. to 5:00 p.m. 2. The [facility] [employer] [facility] accepts prescription medications (in pill form only) for disposal year round. Call for more inf ormation. 3. Contact the [facility] for the next [facility] sponsored prescription drug collection event. , [phone], or [phone]; Note that many narcotic pain relievers also contain Tylenol/acetaminophen. Please ensure that your total dose of acetaminophen from all sources does not exceed 3 g (3000 mg) per day. Forms: PCP List Discharge Date/Time: 04/20/24 16:28
--- NOTE | 2024-04-20 15:19 | XRAY Report ---
PROCEDURE: Finger(s) LT INDICATIONS: Trauma TECHNIQUE: AP hand, 2 views of the fourth finger(s) acquired. COMPARISON: None. FINDINGS: Bones: Tiny fracture fragments can be seen involving the distal phalanx of the fourth finger. No disl ocations. No suspicious bony lesions. Soft tissues: No suspicious soft tissue calcifications or masses. IMPRESSION: Tiny fracture fragments can be seen involving the distal tip of the fourth finger. Reviewed by: Murali King MD on 04/20/2024 2:18 PM NAV Approved by: Murali King MD on 04/20/2024 2:18 PM NAV Station ID: [id number]
[2024-04-20] MEDS: ACETAMINOPHEN 500 MG TABLET PO STA (16:16)
[2024-04-20] MEDS: IBUPROFEN 800 MG TABLET PO STA (16:16)
[2024-04-20 16:37] VITALS: BP 130/88; O2SAT 100
== END 2024-04-20 16:28 | disposition home or self-care (01) ==
LOC: ED 14:10
DX: S62.635A Displaced fracture of distal phalanx of left ring finger, initial encounter for closed fracture (principal); S60.142A Contusion of left ring finger with damage to nail, initial encounter; W23.1XXA Caught, crushed, jammed, or pinched between stationary objects, initial encounter; J45.909 Unspecified asthma, uncomplicated
CPT/HCPCS: 11740; 73140; 99283; 99284; A9270